=== PATIENT | male | born 2000 | race Caucasian/White ===

== ENCOUNTER 2022-06-25 08:00 | Day surgery (SDC) | payer BC ==
[~2022-06-25] VITALS: Ht 177.8 cm; Wt 74.8 kg
[2022-06-25] MEDS ORDERED: ceFAZolin 1GM/50ML 100 ML IV ONE (08:33)
[2022-06-25] MEDS ORDERED: MIDAZOLAM HCL 2MG/2ML 2ml VIAL (1mg/ml) ONE (08:39)
[2022-06-25] MEDS ORDERED: HYDROmorphone HCL 2 MG/ML VL/or syr ONE (08:39)
[2022-06-25] MEDS ORDERED: fentaNYL CITRATE 100 MCG/2 ML VL ONE (08:39)
[2022-06-25] MEDS ORDERED: PROPOFOL 10 MG/ML 20 ML IV ONE (08:40)
[2022-06-25] MEDS ORDERED: DexAMETHasone SOD PHOS 10MG/1ML VIAL INJ ONE (08:40)
[2022-06-25] MEDS ORDERED: ONDANSETRON HCL 4 MG/2 ML VIAL ONE (08:40)
[2022-06-25] MEDS ORDERED: GLYCOPYRROLATE 0.2 MG/ML 1ML VIAL ONE (08:40)
[2022-06-25] MEDS ORDERED: LIDOCAINE 1% (LOCAL ANESTH.) PF 5ml SDV ONE (08:40)
[2022-06-25] MEDS ORDERED: KETOROLAC TROMETH 30 MG/ML 1ML VIAL ONE (08:40)
[2022-06-25] MEDS ORDERED: EPINEPHrine HCL 1 MG/1 ML AMP ONE ×2 (08:49→10:09)
[2022-06-25] MEDS ORDERED: BACITRACIN TOP OINT 1 UD PKG TOP ONE ×2 (11:58→12:31)
[2022-06-25] MEDS ORDERED: ROPIVACAINE 0.5% (5MG/ML) 20ML AMPULE IJ ONE (14:27)
[2022-06-25] MEDS ORDERED: ONDANSETRON HCL 4 MG/2 ML VIAL IV PRN (15:30)
[2022-06-25] MEDS ORDERED: HYDROmorphone HCL 2 MG/ML VL/or syr IV PRN (15:30)
[2022-06-25 16:10] VITALS: BP 128/66
== END 2022-06-25 16:30 | disposition home or self-care (01) ==
LOC: SUR 08:00
PROVIDERS: ATTEND Orthopaedic Surgery Sports Medicine
DX: S83.511A Sprain of anterior cruciate ligament of right knee, initial encounter (principal); S83.411A Sprain of medial collateral ligament of right knee, initial encounter; S83.241A Other tear of medial meniscus, current injury, right knee, initial encounter; Z98.890 Other specified postprocedural states; X58.XXXA Exposure to other specified factors, initial encounter; Y93.89 Activity, other specified; Y92.89 Other specified places as the place of occurrence of the external cause; Y99.8 Other external cause status; Z88.8 Allergy status to other drugs, medicaments and biological substances; Z20.822 Contact with and (suspected) exposure to COVID-19
CPT/HCPCS: 27405; 29882; 29888; 73560; C1713; C1768; J0171; J0690; J1100; J1170; J1885; J2250; J2405; J2704; J2795; J3010; U0003; 76000